=== PATIENT | male | born 1995 | race Caucasian/White ===

== ENCOUNTER 2021-11-08 08:48 | Emergency (ER) | payer OTHER, SELFPAY ==
[2021-11-08 08:58] VITALS: BP 157/78; PULSE 88; RESP 18; TEMP 36.5; O2SAT 99
--- NOTE | 2021-11-08 09:22 | ED.GENADULT ---
HPI - General Adult General Chief complaint: Back Pain/Injury Stated complaint: Back injury Time Seen by Provider: 11/08/21 09:10 Source: patient Mode of arrival: ambulatory Limitations: no limitations History of Present Illness HPI narrative: Patient is a 25-year-old male with chief complaint of spasming to his lower back that began yesterday while bending over playing golf. Patient denies any popping, snapping sensations. Patient denies any falls or other traumas. Patient reports that at the time it began he felt some radiation of pain into his bilateral toes. Patient denies any loss of lower extremity sensation or function. Patient denies any saddle paresthesias or loss of bowel or bladder function. Patient denies any point tenderness to his back. Patient reports the pain intensifies with bending and rotation to his sides. Related Data Allergies Allergy/AdvReac Type Severity Reaction Status Date / Time poison haydee extract Allergy Unknown Rash Verified 11/08/21 09:01 pollen extracts Allergy Unknown Rash Verified 11/08/21 09:01 No Known Allergies Allergy Verified 11/08/21 09:23 Review of Systems Review of Systems: CONSTITUTIONAL: Denies fever, chills, or sweats. EYES: Denies visual changes, redness, or discharge. ENT: Denies rhinorrhea, congestion, sore throat, or otalgia. CARDIOVASCULAR: Denies chest pain, palpitations, or edema. RESPIRATORY: Denies cough or dyspnea. GASTROINTESTINAL: Denies abdominal pain, nausea, vomiting, or diarrhea. GENITOURINARY: Denies dysuria or hematuria. SKIN: Denies rash or itching. MUSCULOSKELETAL: Reports back pain, denies joint pain or myalgia. NEUROLOGIC: Denies headache, numbness, dizziness, or weakness. PSYCHIATRIC: Denies anxiety or depression. [facility] Family History Family History (Updated 01/12/19 @ 09:49 by DOCTOR UNKNOWN) Other Family history of cardiovascular disease Social History Social History Smoking status: Never smoker Alcohol intake: current Substance use type: marijuana Exam Narrative: GENERAL: Well-appearing, well-nourished, and in no acute distress. HEAD: Normocephalic, atraumatic. EYES: PERRLA and EOMI. CHEST:No respiratory distress. No tachypnea. BACK: No vertebral point tenderness, Straight leg raise test negative. Pain to B/L lumbar paraspinal muscles R>L. No erythema, ecchymosis or signs of trauma. EXTREMITIES: Normal range of motion. No edema. SKIN: Warm, dry, no rash. NEURO: No focal deficits. Alert and oriented x3. PSYCH: Normal mood and affect. Course Vital Signs Vital signs: Vital Signs Temperature 97.7 F 11/08/21 08:58 Pulse Rate 88 11/08/21 08:58 Respiratory Rate 18 11/08/21 08:58 Blood Pressure 157/78 H 11/08/21 08:58 Pulse Oximetry 99 11/08/21 08:58 Temperature 97.8 F 11/08/21 10:05 Pulse Rate 64 11/08/21 10:05 Respiratory Rate 14 11/08/21 10:05 Blood Pressure 120/70 11/08/21 10:05 Pulse Oximetry 100 11/08/21 10:05 Medical Decision Making MDM Narrative Medical decision making narrative: patients pain is positional in nature and localized to back without signs of cord compression or cauda equina based on neurological exam, skeletal exam and history. No fever or other significant factors to suggest osteomyelitis or spinal epidural abscess. No symptoms or signs to suggest pain is referred from abdominal or / cardiopulmonary sources. No pulsatile masses noted on exam. Patient ambulates with steady gait and is stable for outpatient management given case findings. Patient has no vertebral point tenderness. Joint decision making deciding to forego xray at this time. Patient would like prescription for naproxen and has been told not to take ibuprofen of other NSAIDS with it. Will prescribe cyclobenzaprine. Referrral to PCP for reevaluation. Discussed if symptoms persist further management and imaging may be needed. Discussed RTER if any emergent symptoms. Differential Diagnosis Differential Diagno
[2021-11-08] MEDS: methylPREDNISolone SOD SUCC 125 MG VIAL IM (09:25)
[2021-11-08] MEDS: KETOROLAC (*BKC) 60 MG/2 ML VIAL IM (09:26)
[2021-11-08 10:05] VITALS: BP 120/70; PULSE 64; RESP 14; TEMP 36.6; O2SAT 100
== END 2021-11-08 10:05 | disposition home or self-care (01) ==
PROVIDERS: Emergency Provider Emergency Medicine
DX: S39.012A Strain of muscle, fascia and tendon of lower back, initial encounter (principal); X50.9XXA Other and unspecified overexertion or strenuous movements or postures, initial encounter; Y93.53 Activity, golf
CPT/HCPCS: 96372; 99284; J1885; J2930